=== PATIENT | male | born 1980 ===

== ENCOUNTER 2017-06-16 19:37 | Emergency (ER) | payer BC ==
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
== END 2017-06-16 21:35 | disposition home or self-care (01) ==
LOC: LB.ED 19:37
DX: S06.0X9A Concussion with loss of consciousness of unspecified duration, initial encounter (principal); M25.551 Pain in right hip; R41.3 Other amnesia; Z79.899 Other long term (current) drug therapy; V86.52XA Driver of snowmobile injured in nontraffic accident, initial encounter
CPT/HCPCS: 70450; 99284-25